=== PATIENT | male | born 1980 | race Caucasian/White ===

== ENCOUNTER 2016-03-31 07:57 | Emergency (ER) | payer SELFPAY ==
[~2016-03-31] VITALS: Ht 180.3 cm; Wt 85.0 kg
[2016-03-31 07:59] VITALS: BP 138/73; PULSE 83; RESP 15; TEMP 98.1; O2SAT 98
--- NOTE | 2016-03-31 08:40 | PD ---
HPI Chief Complaint: Skin Problem Time Seen by Provider: 08:40 Travel History International Travel<30 days: No Contact w/Intl Traveler<30days: No Traveled to known affect area: No History of Present Illness HPI 35-year-old male came to the emergency room complaining of left upper extremity pain, swelling and redness. Patient is an IV drug abuser and says that he noticed this last night and this morning it had gotten bigger in size. He has history of MRSA. Vital signs are stable here. Denies any fever or chills. [facility] Past Medical History Narrative Medical List of his past medical history as reviewed from the nursing note. Bipolar Disorder: Yes Depression: Yes Diabetes: No Diminished Hearing: No Psychiatric: Yes Integumentary: Yes Immunizations Current: Yes Past Surgical History Appendectomy: Yes Other Surgery: Yes ([facility] RIGHT FOREARM AND LEFT GROIN) Social History Alcohol Use: No Tobacco Use: Yes (1 PACK CIGS DAILY) Substance Use: Yes (substance abuse heroin, XANAX, FENTANYL ) Allergies-Medications (Allergen,Severity, Reaction): Coded Allergies: No Known Allergies (Unverified , 03/31/16) Comments No known drug allergies. Reported Meds & Prescriptions Reported Meds & Active Scripts Active No Active Prescriptions or Reported Medications Narrative Medication List of his home medications are reviewed from the nursing note. Review of Systems Except as stated in HPI: all other systems reviewed are Neg Physical Exam Narrative GENERAL: Awake, alert, anxious but no significant distress SKIN: Warm and dry. Right upper extremity on the biceps area there is a 5 x 5 cm erythematous warm indurated swelling with no fluctuance HEAD: Atraumatic. Normocephalic. EYES: Pupils equal and round. No scleral icterus. No injection or drainage. ENT: No nasal bleeding or discharge. Mucous membranes pink and moist. NECK: Trachea midline. No JVD. CARDIOVASCULAR: Regular rate and rhythm. No murmur appreciated. RESPIRATORY: No accessory muscle use. Clear to auscultation. Breath sounds equal bilaterally. GASTROINTESTINAL: Abdomen soft, non-tender, nondistended. Hepatic and splenic margins not palpable. MUSCULOSKELETAL: No obvious deformities. No clubbing. No cyanosis. No edema. NEUROLOGICAL: Awake and alert. No obvious cranial nerve deficits. Motor grossly within normal limits. Normal speech. PSYCHIATRIC: Appropriate mood and affect; insight and judgment normal. Data Data Last Documented VS Vital Signs Date Time Temp Pulse Resp B/P Pulse Ox O2 Delivery O2 Flow Rate FiO2 03/31/16 07:59 98.1 83 15 138/73 98 Orders Basic Metabolic Panel (Bmp) (03/31/16 08:43) Complete Blood Count With Diff (03/31/16 08:43) Blood Culture (03/31/16 08:43) Iv Access Insert/Monitor (03/31/16 08:43) Ketorolac Inj (Toradol Inj) (03/31/16 08:45) Clindamycin Inj (Cleocin Inj) (03/31/16 08:45) Tetanus-Diphther Tox Peds Inj (Tetanus-D (03/31/16 08:45) Sulfamet-Trimeth Ds 800-160 Mg (Bactrim (03/31/16 08:45) Ed Poc Ultrasound (03/31/16 ) Sodium Chlor 0.9% 1000 Ml Inj (Ns 1000 M (03/31/16 08:45) Clindamycin Inj (Cleocin Inj) (03/31/16 09:45) Labs Laboratory Tests Test 03/31/16 09:30 White Blood Count 15.1 TH/MM3 Red Blood Count 5.18 MIL/MM3 Hemoglobin 15.7 GM/DL Hematocrit 45.2 % Mean Corpuscular Volume 87.2 FL Mean Corpuscular Hemoglobin 30.2 PG Mean Corpuscular Hemoglobin 34.7 % Concent Red Cell Distribution Width 13.6 % Platelet Count 196 TH/MM3 Mean Platelet Volume 9.1 FL Neutrophils (%) (Auto) 79.3 % Lymphocytes (%) (Auto) 9.8 % Monocytes (%) (Auto) 10.2 % Eosinophils (%) (Auto) 0.5 % Basophils (%) (Auto) 0.2 % Neutrophils # (Auto) 12.0 TH/MM3 Lymphocytes # (Auto) 1.5 TH/MM3 Monocytes # (Auto) 1.5 TH/MM3 Eosinophils # (Auto) 0.1 TH/MM3 Basophils # (Auto) 0.0 TH/MM3 CBC Comment DIFF FINAL Differential Comment Sodium Level 135 MEQ/L Potassium Level 4.0 MEQ/L Chloride Level 100 MEQ/L Carbon Dioxide Level 27.9 MEQ/L Anion Gap 7 MEQ/L Blood Urea Nitrogen 7 MG/DL Creatinine 0.90 MG/DL Estimat Glomerular Filtration 95 ML/MIN Rate Random Glucose 94 MG/DL Calcium Level 8.9 MG/DL MDM Medical Decision Making Medical Screen Exam Complete: Yes Emergency Medical Condition: Yes Medical Record Reviewed: Yes Differential Diagnosis Abscess, cellulitis Narrative Course 10:47 AM I had ordered blood test and IV fluid and antibiotic. Being an IV drug abuser patient was a very hard stick. This was as per his own admission as well. The nurse had tried few times and was unable to get and access. However as soon as I started to prep him for the EJ after explaining it patient jumped out of the bed using herbal profanity and wanted to leave. He did not want an EJ. He wanted to speak with the cheese production supervisor. The charge nurse did come and speak with him. After which she had agreed to stay and one of the nurses he use the bedside ultrasound to get an access into his left antecubital vein. However as per his nurse while the fluid was running patient started complaining of pain and there was infiltration in the area. She had to stop the fluid and get the IV out. At this point patient just wanted to leave. He was in full capacity to make decisions for himself. Procedures EKG Prior to Arrival: No Diagnosis Primary Impression: Cellulitis Qualified Code: L03.113 - Cellulitis of right upper extremity Additional Impression: IV drug abuse Scripts No Active Prescriptions or Reported Meds Disposition: 07 AGAINST MEDICAL ADVICE Condition: Serious Kavitha Maynard MD Mar 31, 2016 08:40
[2016-03-31] MEDS ORDERED: TETANUS/DIPHTHERIA TOXOID PEDIATRIC 0.5 ML VIAL IM ONE (08:45)
[2016-03-31] MEDS ORDERED: SULFAMETHOXAZOLE-TRIMETHOPRIM DS 800-160 MG TAB PO ONE (08:45)
[2016-03-31] MEDS ORDERED: SODIUM CHLOR 0.9% 1000 ML INJ 1,000 ML IV ONE (08:45)
[2016-03-31] MEDS: KETOROLAC TROMETHAMINE 30 MG/ML (IVP) VIAL IVP ONE ×2 (08:45→09:49)
[2016-03-31] MEDS ORDERED: CLINDAMYCIN PHOS 600 MG/4 ML VIAL IM ONE (08:45)
[2016-03-31] MEDS: CLINDAMYCIN INJ 600 MG in SODIUM CHLORIDE 0.9% INJ 100 ML IV ONE ×2 (09:45→09:49)
[2016-03-31 10:14] LABS: BASOPHIL % 0.2 % (0.0-2.0); EOSINOPHIL # 0.1 TH/MM3 (0-0.4); EOSINOPHIL % 0.5 % (0.0-4.0); HEMATOCRIT 45.2 % (39.0-51.0); HEMO FLAGS DIFF FINAL; LYMPH % 9.8 % (9.0-44.0); LYMPHOCYTE # 1.5 TH/MM3 (1.0-4.8); MEAN CELL VOLUME 87.2 FL (80.0-100.0); MEAN CORPUSCULAR HEMOGLOBIN 30.2 PG (27.0-34.0); MEAN CORPUSCULAR HGB CONC 34.7 % (32.0-36.0); MONO % 10.2 % (0.0-8.0); NEUT % 79.3 % (16.0-70.0); PLATELET COUNT 196 TH/MM3 (150-450); RED BLOOD COUNT 5.18 MIL/MM3 (4.50-5.90); RED CELL DISTRIBUTION WIDTH 13.6 % (11.6-17.2); WHITE BLOOD COUNT 15.1 TH/MM3 (4.0-11.0)
[2016-03-31 10:57] LABS: BICARBONATE 27.9 MEQ/L (21.0-32.0)
== END 2016-03-31 10:30 | disposition left against medical advice (07) ==
LOC: NEPC 07:57
DX: L03.113 Cellulitis of right upper limb (principal); Z86.14 Personal history of Methicillin resistant Staphylococcus aureus infection; F17.210 Nicotine dependence, cigarettes, uncomplicated
CPT/HCPCS: 80048; 85025; 87040; 99283; J1885; J7030

== ENCOUNTER 2016-04-12 14:10 | Emergency (ER) | payer SELFPAY ==
[~2016-04-12] VITALS: Ht 177.8 cm; Wt 81.8 kg
[2016-04-12 14:12] VITALS: BP 134/82; PULSE 82; RESP 17; TEMP 98.2; O2SAT 99
--- NOTE | 2016-04-12 14:48 | PD ---
HPI Chief Complaint: Wound/Suture/Staple Re-Check Time Seen by Provider: 14:47 Travel History International Travel<30 days: No Contact w/Intl Traveler<30days: No Traveled to known affect area: No History of Present Illness HPI 35-year-old male with a history of IV drug abuse presents to the emergency department for evaluation of wound recheck. The patient was seen at our hospital 03/31/16 for heroin overdose and admitted for overdose and right upper arm abscess. While he was in the hospital he had incision and drainage of this abscess performed by surgeon Dr. Peters. He has been using wet-to-dry dressings since he was discharged 5 days ago and he has finished all antibiotics. He states the wound appears much better now, there is no redness, drainage, swelling, fever, chills. States that he thought he was told to come back to the hospital for follow-up, is unsure where he is supposed to go for follow-up of this wound. No other complaints. PFSH Past Medical History Bipolar Disorder: Yes Depression: Yes Diabetes: No Diminished Hearing: No Psychiatric: Yes Integumentary: Yes Immunizations Current: Yes Past Surgical History Appendectomy: Yes Other Surgery: Yes ([facility] RIGHT FOREARM AND LEFT GROIN) Social History Alcohol Use: No Tobacco Use: Yes (1 PACK CIGS DAILY) Substance Use: Yes (substance abuse heroin, XANAX, FENTANYL ) Allergies-Medications (Allergen,Severity, Reaction): Coded Allergies: No Known Allergies (Unverified , 04/12/16) Reported Meds & Prescriptions Reported Meds & Active Scripts Active No Active Prescriptions or Reported Medications Review of Systems Except as stated in HPI: all other systems reviewed are Neg Physical Exam Narrative GENERAL: Well-nourished and well-developed pleasant male patient in no acute distress who is nontoxic appearing. SKIN: Warm and dry. Medial right upper arm with surgical incision approximately 7 cm in length and 2 cm in diameter. Appears to be healing well with pink granulation tissue. No surrounding erythema, warmth, swelling, discharge or drainage. HEAD: Normocephalic and atraumatic. EYES: No injection, drainage, or hyphema noted. PERRLA. EOMI. ENT: No nasal drainage noted. Oropharynx is clear. NECK: Supple and the trachea is midline. CARDIOVASCULAR: Regular rate and rhythm. RESPIRATORY: Breath sounds are equal bilaterally with no accessory muscle use, wheezing, rhonchi, or crackles. MUSCULOSKELETAL: No obvious deformities, swelling, cyanosis, or ecchymosis is present throughout the upper and lower extremities. Patient has full range of motion without any signs of neurovascular compromise. NEUROLOGICAL: Awake, alert, and oriented. Normal speech and gait. Cranial nerves are grossly intact. Data Data Last Documented VS Vital Signs Date Time Temp Pulse Resp B/P Pulse Ox O2 Delivery O2 Flow Rate FiO2 04/12/16 14:12 98.2 82 17 134/82 99 MDM Medical Decision Making Medical Screen Exam Complete: Yes Emergency Medical Condition: Yes Differential Diagnosis Wound care versus wound recheck versus abscess follow-up Narrative Course 35-year-old male presents to the emergency department for evaluation of right upper arm wound. Patient is afebrile, vital signs are stable. Patient is status post surgical incision and drainage of right upper extremity abscess. He was unsure who he was supposed to follow up with so he came back to the emergency department. The wound appears to be healing very well. There is no signs of active infection. I have given him the information of his surgeon and advised him to call their office to schedule an outpatient appointment. Patient verbalizes understanding and agreement with treatment plan. Diagnosis Primary Impression: Wound of right upper extremity Qualified Code: S41.101A - Wound of right upper extremity, initial encounter Referrals: Kaley Peters MD Additional Instructions: Continue wound care as discussed. Follow-up with Dr. Peters in office. Return to the ED for any acute worsening of symptoms. Med/Other Pt SpecificInfo: No Change to Meds Scripts No Active Prescriptions or Reported Meds Disposition: 01 DISCHARGE HOME Condition: Stable Hue Kennedy Apr 12, 2016 14:48
== END 2016-04-12 15:00 | disposition home or self-care (01) ==
LOC: NEPB 14:10
DX: L02.413 Cutaneous abscess of right upper limb (principal)
CPT/HCPCS: 99282

== ENCOUNTER 2017-05-13 12:02 | Emergency (ER) | payer SELFPAY ==
[~2017-05-13] VITALS: Ht 208.3 cm; Wt 90.0 kg
[~2017-05-13 12:02] MED LIST: BACT800T5 PO; CIPR-9 PO; IBUP1TAB7 PO
[2017-05-13 12:10] VITALS: BP 140/66; PULSE 66; RESP 17; TEMP 97.9; O2SAT 95
[2017-05-13] MEDS ORDERED: METH40TA PO (12:28)
[2017-05-13] MEDS ORDERED: SODIUM CHLORIDE 0.9% FLUSH 10 ML FLUSH IVF PRN (12:30)
--- NOTE | 2017-05-13 12:31 | PD ---
HPI Chief Complaint: Alcohol/Drug Intoxication Time Seen by Provider: 12:16 Travel History International Travel<30 days: No Contact w/Intl Traveler<30days: No Traveled to known affect area: No History of Present Illness HPI Patient is a 36-year-old male presented to the emergency room for evaluation of possible overdose. is at bedside and is giving history. Patient has a history of heroin abuse, he is currently on methadone daily. She states that they missed the appointment this morning at the methadone clinic because he overslept. She reports that she picked him up this morning and in the car he turned blue and was foaming at the mouth. She reports that he likely use heroin because he missed the methadone appointment. Symptom onset was sudden, severity is moderate to severe. Symptoms are exacerbated by drug use. Patient initially reported that he wanted to see if his methadone needed to be adjusted because when he sweats or exerts himself he feels that the medication is not working well. Patient reported to [facility] that he also took Xanax this morning. He has no other history. PFSH Past Medical History Bipolar Disorder: Yes Anxiety: Yes Depression: Yes Genitourinary: No Immunizations Current: Yes Past Surgical History Appendectomy: Yes Other Surgery: Yes ([facility] RIGHT FOREARM AND LEFT GROIN) Social History Alcohol Use: Yes (OCCASIONAL) Tobacco Use: Yes (1/2 PPD) Substance Use: Yes (IV drug abuse ) Allergies-Medications (Allergen,Severity, Reaction): Coded Allergies: No Known Allergies (Unverified Adverse Reaction, Unknown, 05/13/17) Reported Meds & Prescriptions Reported Meds & Active Scripts Active Reported Methadone (Methadone HCl) 40 Mg Tab 90 Mg PO DAILY Review of Systems Except as stated in HPI: all other systems reviewed are Neg Neurologic: Positive: Change in Mentation Psychiatric: Positive: Substance Abuse Physical Exam Narrative GENERAL: Well-developed, well-nourished, drowsy male. SKIN: Warm and dry. HEAD: Atraumatic. Normocephalic. EYES: Pupils equal and round. No scleral icterus. No injection or drainage. ENT: No nasal bleeding or discharge. Mucous membranes pink and moist. NECK: Trachea midline. No JVD. CARDIOVASCULAR: Regular rate and rhythm. RESPIRATORY: No accessory muscle use. Clear to auscultation. Breath sounds equal bilaterally. GASTROINTESTINAL: Abdomen soft, non-tender, nondistended. Hepatic and splenic margins not palpable. MUSCULOSKELETAL: Extremities without clubbing, cyanosis, or edema. No obvious deformities. NEUROLOGICAL: Drowsy but arousable. No obvious cranial nerve deficits. Motor grossly within normal limits. Five out of 5 muscle strength in the arms and legs. Normal speech. PSYCHIATRIC: Appropriate mood and affect; insight and judgment normal. Data Data Last Documented VS Vital Signs Date Time Temp Pulse Resp B/P (MAP) Pulse Ox O2 Delivery O2 Flow Rate FiO2 05/13/17 12:10 97.9 66 17 140/66 (90) 95 Orders Orders Iv Access Insert/Monitor (05/13/17 12:28) Ecg Monitoring (05/13/17 12:28) Oximetry (05/13/17 12:28) Sodium Chloride 0.9% Flush (Ns Flush) (05/13/17 12:30) Naloxone Inj (Narcan Inj) (05/13/17 12:45) [facility] Medical Decision Making Medical Screen Exam Complete: Yes Emergency Medical Condition: Yes Interpretation(s) Vital Signs Date Time Temp Pulse Resp B/P (MAP) Pulse Ox O2 Delivery O2 Flow Rate FiO2 05/13/17 12:10 97.9 66 17 140/66 (90) 95 Differential Diagnosis Substance abuse vs heroine OD vs metabolic abnormality vs other Narrative Course Patient is a 36-year-old male that presented to the emergency department for evaluation of possible overdose on heroin. Patient was drowsy but arousable on arrival, his gave most of the report. Patient's vital signs are stable, he was well oxygenated on room air. Narcan was ordered but not given. Patient was reassessed, he is alert, much more so than on arrival. He is well- appearing. He is requesting to be discharged. He has no suicidal homicidal ideations. Patient uses heroin due to missing his appointment at the methadone clinic. Patient was given discharge information. Diagnosis Primary Impression: Heroin overdose Qualified Codes: T40.1X1A - Poisoning by heroin, accidental (unintentional), initial encounter Referrals: [facility] Patient Instructions: General Instructions, Opioid Overdose (ED) Additional Instructions: Follow-up with Jeronimo Rodriguez Follow-up at the methadone clinic Avoid illicit drug use Return to emergency department for any new worsening symptoms Med/Other Pt SpecificInfo: No Change to Meds Disposition: 01 DISCHARGE HOME Condition: Stable Smith,Glenny VESSEL LINER May 13, 2017 12:31
[2017-05-13] MEDS ORDERED: NALOXONE HCL 0.4 MG/ML AMP IV PUSH PRN (12:45)
[2017-05-13 13:40] VITALS: BP 138/62
== END 2017-05-13 13:49 | disposition home or self-care (01) ==
LOC: NEPE 12:02
DX: T40.1X1A Poisoning by heroin, accidental (unintentional), initial encounter (principal)
CPT/HCPCS: 99281

== ENCOUNTER 2017-06-23 01:17 | Inpatient (IN) | payer SELFPAY ==
[~2017-06-23] VITALS: Ht 182.9 cm; Wt 85.8 kg
[~2017-06-23 01:17] MED LIST changes: -BACT800T5 PO; -CIPR-9 PO; -IBUP1TAB7 PO; +METH40TA PO
[2017-06-23 01:26] VITALS: BP 138/74; PULSE 97; RESP 18; TEMP 100.4; O2SAT 100
[2017-06-23] MEDS ORDERED: SODIUM CHLOR 0.9% 1000 ML INJ 700 ML IV ONE (02:49)
[2017-06-23] MEDS ORDERED: SODIUM CHLOR 0.9% 1000 ML INJ 1,000 ML IV ONE ×2 (02:49)
[2017-06-23 03:11] LABS: AUTOMATED NEUTROPHIL # 14.2 TH/MM3 (1.8-7.7); BASOPHIL # 0.6 TH/MM3 (0-0.2); BASOPHIL % 3.1 % (0.0-2.0); EOSINOPHIL # 0.1 TH/MM3 (0-0.4); EOSINOPHIL % 0.6 % (0.0-4.0); HEMATOCRIT 34.1 % (39.0-51.0); HEMOGLOBIN 11.8 GM/DL (13.0-17.0); LYMPH % 8.3 % (9.0-44.0); LYMPHOCYTE # 1.5 TH/MM3 (1.0-4.8); MEAN CELL VOLUME 87.8 FL (80.0-100.0); MEAN CORPUSCULAR HEMOGLOBIN 30.3 PG (27.0-34.0); MEAN CORPUSCULAR HGB CONC 34.5 % (32.0-36.0); MEAN PLATELET VOLUME 8.2 FL (7.0-11.0); MONO % 7.8 % (0.0-8.0); MONOCYTE # 1.4 TH/MM3 (0-0.9); NEUT % 80.2 % (16.0-70.0); PLATELET COUNT 232 TH/MM3 (150-450); RED BLOOD COUNT 3.89 MIL/MM3 (4.50-5.90); RED CELL DISTRIBUTION WIDTH 11.6 % (11.6-17.2); WHITE BLOOD COUNT 17.9 TH/MM3 (4.0-11.0)
[2017-06-23 03:19] LABS: CHLORIDE 101 MEQ/L (98-107); SODIUM (NA) 134 MEQ/L (136-145)
[2017-06-23 03:22] LABS: CALCIUM 8.1 MG/DL (8.5-10.1)
[2017-06-23 03:23] LABS: ALBUMIN 2.9 GM/DL (3.4-5.0); BICARBONATE 26.5 MEQ/L (21.0-32.0); BLOOD UREA NITROGEN 13 MG/DL (7-18); GLUCOSE,RANDOM 100 MG/DL (74-106)
--- NOTE | 2017-06-23 03:25 | PD ---
HPI Chief Complaint: Fever Time Seen by Provider: 02:28 Travel History International Travel<30 days: No Contact w/Intl Traveler<30days: No Traveled to known affect area: No History of Present Illness HPI The patient is a 37-year-old male who abuses alcohol, cocaine and heroin and is now abusing heroin on a regular basis. He said he shot up heroin about 6 hours ago but told the nurse earlier that he shot up heroin 1 hour ago. He complains of fever and swelling in the right wrist which he ascribes to "cotton fever". He states he will refuse any admission tonight. In addition to actively abusing heroin, he takes methadone from the methadone clinic. He states that he will refuse admission and unless he can get methadone, he takes 95 mg of methadone daily. PFSH Past Medical History Bipolar Disorder: Yes Anxiety: Yes Depression: Yes Diabetes: No Diminished Hearing: No Genitourinary: No Psychiatric: Yes Integumentary: Yes Immunizations Current: Yes Tetanus Vaccination: < 5 Years Past Surgical History Appendectomy: Yes Other Surgery: Yes ([facility] RIGHT FOREARM AND LEFT GROIN) Social History Alcohol Use: No Tobacco Use: Yes (03/13 PPD) Substance Use: Yes (IV drug abuse, marijuana, heroin) Allergies-Medications (Allergen,Severity, Reaction): Coded Allergies: No Known Allergies (Unverified Allergy, Unknown, 06/23/17) Reported Meds & Prescriptions Reported Meds & Active Scripts Active Reported Methadose (Methadone HCl) 40 Mg Tab 95 Mg PO DAILY Review of Systems Except as stated in HPI: all other systems reviewed are Neg Physical Exam Narrative GENERAL: The patient is slightly sleepy but will answer questions and wakes up promptly. He does appear slightly high. SKIN: Focused skin assessment warm/dry. Recent needle tracks are present on both wrists and forearms, there is cellulitis present around both wrist but no abscesses are noted. HEAD: Atraumatic. Normocephalic. EYES: Pupils equal and round and 1 mm in diameter. No scleral icterus. No injection or drainage. ENT: No nasal bleeding or discharge. Mucous membranes pink and moist. NECK: Trachea midline. No JVD. CARDIOVASCULAR: Regular rate and rhythm. No murmur appreciated. RESPIRATORY: No accessory muscle use. Clear to auscultation. Breath sounds equal bilaterally. GASTROINTESTINAL: Abdomen soft, non-tender, nondistended. Hepatic and splenic margins not palpable. MUSCULOSKELETAL: No obvious deformities. No clubbing. No cyanosis. No edema. NEUROLOGICAL: Awake and alert. No obvious cranial nerve deficits. Motor grossly within normal limits. Normal speech. PSYCHIATRIC: Appropriate mood and affect; insight and judgment normal. Data Data Last Documented VS Vital Signs Date Time Temp Pulse Resp B/P (MAP) Pulse Ox O2 Delivery O2 Flow Rate FiO2 06/23/17 03:45 100.2 65 28 138/68 (91) 98 Room Air Orders Orders Sepsis Workup Initiated (06/23/17 ) Complete Blood Count With Diff (06/23/17 02:49) Comprehensive Metabolic Panel (06/23/17 02:49) Lactic Acid Sepsis Protocol (06/23/17 02:49) Troponin I (06/23/17 02:49) Urinalysis - C+S If Indicated (06/23/17 02:49) Blood Culture (06/23/17 02:49) Chest, Pa & Lat (06/23/17 02:49) Ecg Monitoring (06/23/17 02:49) Iv Access Insert/Monitor (06/23/17 02:49) Oximetry (06/23/17 02:49) Oxygen Administration (06/23/17 02:49) Sodium Chlor 0.9% 1000 Ml Inj (Ns 1000 M (06/23/17 02:49) Sodium Chlor 0.9% 1000 Ml Inj (Ns 1000 M (06/23/17 02:49) Sodium Chlor 0.9% 1000 Ml Inj (Ns 1000 M (06/23/17 02:49) Sodium Chloride 0.9% Flush (Ns Flush) (06/23/17 04:00) Ceftriaxone Inj (Rocephin Inj) (06/23/17 04:00) Azithromycin Inj (Zithromax Inj) (06/23/17 04:00) B-Type Natriuretic Peptide (06/23/17 03:58) Vancomycin Consult Pharmacy (Vancomycin (06/23/17 05:00) Cefepime Inj (Maxipime Inj) (06/23/17 19:00) Lorazepam Inj (Ativan Inj) (06/23/17 05:00) Admit To Inpatient (06/23/17 ) Vital Signs (Adult) Q4H (06/23/17 04:47) Activity Oob Ad Lexi (06/23/17 04:47) Heavy Mobile Equipment Operator / Telemetry .CONTINUOUS (06/23/17 04:47) Intake + Output CLARA.QSHIFT (06/23/17 04:47) Diet Regular Basic (06/23/17 Breakfast) Sodium Chlor 0.9% 1000 Ml Inj (Ns 1000 M (06/23/17 04:47) Sodium Chloride 0.9% Flush (Ns Flush) (06/23/17 05:00) Sodium Chloride 0.9% Flush (Ns Flush) (06/23/17 09:00) Ondansetron Inj (Zofran Inj) (06/23/17 05:00) Comprehensive Metabolic Panel (06/24/17 06:00) Complete Blood Count With Diff (06/24/17 06:00) Scd Bilateral/Knee High CLARA.BID (06/23/17 04:47) Remy Bilateral/Knee High CLARA.QSHIFT (06/23/17 04:50) Acetaminophen (Tylenol) (06/23/17 05:00) Oxycodone (Roxicodone) (06/23/17 05:00) Oxycodone (Roxicodone) (06/23/17 05:00) Docusate Sodium-Senna (Marly-Colace) (06/23/17 09:00) Magnesium Hydroxide Liq (Milk Of Magnesi (06/23/17 05:00) Sennosides (Senokot) (06/23/17 05:00) Bisacodyl Supp (Dulcolax Supp) (06/23/17 05:00) Lactulose Liq (Lactulose Liq) (06/23/17 05:00) Inpatient Certification (06/23/17 ) Labs Laboratory Tests Test 06/23/17 03:00 White Blood Count 17.9 TH/MM3 Red Blood Count 3.89 MIL/MM3 Hemoglobin 11.8 GM/DL Hematocrit 34.1 % Mean Corpuscular Volume 87.8 FL Mean Corpuscular Hemoglobin 30.3 PG Mean Corpuscular Hemoglobin Concent 34.5 % Red Cell Distribution Width 11.6 % Platelet Count 232 TH/MM3 Mean Platelet Volume 8.2 FL Neutrophils (%) (Auto) 80.2 % Lymphocytes (%) (Auto) 8.3 % Monocytes (%) (Auto) 7.8 % Eosinophils (%) (Auto) 0.6 % Basophils (%) (Auto) 3.1 % Neutrophils # (Auto) 14.2 TH/MM3 Lymphocytes # (Auto) 1.5 TH/MM3 Monocytes # (Auto) 1.4 TH/MM3 Eosinophils # (Auto) 0.1 TH/MM3 Basophils # (Auto) 0.6 TH/MM3 CBC Comment DIFF FINAL Differential Comment Blood Urea Nitrogen 13 MG/DL Creatinine 0.88 MG/DL Random Glucose 100 MG/DL Total Protein 7.1 GM/DL Albumin 2.9 GM/DL Calcium Level 8.1 MG/DL Alkaline Phosphatase 60 U/L Aspartate Amino Transf (AST/SGOT) 15 U/L Alanine Aminotransferase (ALT/SGPT) 16 U/L Total Bilirubin 0.3 MG/DL Sodium Level 134 MEQ/L Potassium Level 3.8 MEQ/L Chloride Level 101 MEQ/L Carbon Dioxide Level 26.5 MEQ/L Anion Gap 7 MEQ/L Estimat Glomerular Filtration Rate 97 ML/MIN Lactic Acid Level 0.5 mmol/L Troponin I LESS THAN 0.02 NG/ML B-Type Natriuretic Peptide 38 PG/ML MDM Medical Decision Making Medical Screen Exam Complete: Yes Emergency Medical Condition: Yes Medical Record Reviewed: Yes Interpretation(s) The CBC shows a white count of 17,900 with a hemoglobin of 11.9 and hematocrit of 34.1 with 80% neutrophils. The complete metabolic profile shows a sodium 134 , calcium 8.1 and albumin 2.9 but is otherwise normal. The troponin I is normal. Lactic acid is 0.5 which is normal. The BNP is normal. Differential Diagnosis Heroin related pulmonary edema, pneumonia, cellulitis, sepsis, electrolyte disorder, dehydration Narrative Course The patient likely has heroin related pulmonary edema. He also has cellulitis from his multiple needle sticks in the wrist. He is also mildly dehydrated. The patient initially agreed to be admitted but then changed his mind. The patient only agreed to be admitted to [facility] if he could get his methadone, 95 mg daily. I could not assure him this but I called Dr. Curtis and she would get it if she could confirm that he was getting this at the methadone clinic. I informed the patient about this but he left. The patient apparently threw his urinal on the floor, he said this was accidental. The patient also refused to sign out AMA. Diagnosis Primary Impression: Cellulitis Additional Impressions: Heroin overdose Atypical pneumonia Pulmonary edema Additional Instructions: Stay off of heroin, I hope you do go to [facility] and I gave you the blood work that we did here to speed up the workup. We will be glad to admit you here if you return. Disposition: 07 AGAINST MEDICAL ADVICE Condition: Stable Amandeep Hagan MD Jun 23, 2017 03:25
[2017-06-23 03:26] LABS: ALT (GPT) 16 U/L (12-78); AST (GOT) 15 U/L (15-37); CREATININE 0.88 MG/DL (0.60-1.30); GLOMERULAR FILTRATION RATE 97 ML/MIN (>89)
[2017-06-23 03:27] LABS: TOTAL BILIRUBIN ADULT 0.3 MG/DL (0.2-1.0); TOTAL PROTEIN 7.1 GM/DL (6.4-8.2)
--- NOTE | 2017-06-23 03:28 | RADRPT ---
EXAM DATE/TIME: 06/23/2017 03:00 [place] COMPARISON: CHEST PA & LAT, January 19, 2015, 19:43. INDICATIONS : Fever. MEDICAL HISTORY : None. SURGICAL HISTORY : Appendectomy. ENCOUNTER: Initial ACUITY: 4 - 6 days PAIN SCORE: 7/10 LOCATION: Bilateral chest FINDINGS: The cardiac silhouette is normal in transverse diameter. There is interstitial disease bilaterally wh ich may reflect edema or pneumonia. No pleural effusions are identified. CONCLUSION: Interstitial disease which may reflect atypical pneumonia or edema Mark Sandra MD on June 23, 2017 at 3:25 Board Certified Radiologist. This report was verified electronically.
[2017-06-23 03:29] LABS: ALKALINE PHOSPHATASE 60 U/L (45-117)
[2017-06-23 03:31] LABS: TROPONIN I LESS THAN 0.02 NG/ML (0.02-0.05)
[2017-06-23 03:44] VITALS: O2SAT 98
[2017-06-23 03:45] VITALS: BP 138/68; PULSE 65; PULSE 95; RESP 28; TEMP 100.2; O2SAT 98
[2017-06-23] MEDS ORDERED: cefTRIAXone INJ 1,000 MG in SODIUM CHLORIDE 0.9% INJ 100 ML IV ONE (04:00)
[2017-06-23] MEDS ORDERED: AZITHROMYCIN INJ 500 MG in SODIUM CHLOR 0.9% 250 ML INJ 250 ML IV ONE (04:00)
[2017-06-23] MEDS ORDERED: SODIUM CHLORIDE 0.9% FLUSH 10 ML FLUSH IVF PRN (04:00)
[2017-06-23] MEDS ORDERED: METH40TA2 PO (04:37)
[2017-06-23] MEDS ORDERED: SODIUM CHLOR 0.9% 1000 ML INJ 1,000 ML IV SCH (04:47)
[2017-06-23] MEDS ORDERED: LORazepam 2 MG/ML VIAL IV PUSH PRN (05:00)
[2017-06-23] MEDS ORDERED: SODIUM CHLORIDE 0.9% FLUSH 10 ML FLUSH IV FLUSH PRN (05:00)
[2017-06-23] MEDS ORDERED: SENNOSIDES 8.6 MG TAB PO PRN (05:00)
[2017-06-23] MEDS ORDERED: MAGNESIUM HYDROXIDE SUSP 30 ML CUP PO PRN (05:00)
[2017-06-23] MEDS ORDERED: Vancomycin Consult Pharmacy 1 EA OTHER SCH (05:00)
[2017-06-23] MEDS ORDERED: ACETAMINOPHEN 325 MG TAB PO PRN (05:00)
[2017-06-23] MEDS ORDERED: BISACODYL 10 MG SUPP RECTAL PRN (05:00)
[2017-06-23] MEDS ORDERED: LACTULOSE SYRUP 20 GM/30 ML CUP PO PRN (05:00)
[2017-06-23] MEDS ORDERED: ONDANSETRON HCL 4 MG/2 ML VIAL IVP PRN (05:00)
[2017-06-23] MEDS ORDERED: VANCOMYCIN INJ 2,000 MG in SODIUM CHLORID 0.9% 500 ML INJ 500 ML IV SCH (06:00)
[2017-06-23] MEDS ORDERED: SODIUM CHLORIDE 0.9% FLUSH 10 ML FLUSH IV FLUSH SCH (09:00)
[2017-06-23] MEDS ORDERED: DOCUSATE SODIUM 50 MG/SENNA 8.6 MG TAB PO SCH (09:00)
[2017-06-23] MEDS ORDERED: CEFEPIME INJ 1,000 MG in SODIUM CHLORIDE 0.9% INJ 100 ML IV SCH (19:00)
[2017-06-24] MEDS ORDERED: CLIN150 PO (15:23)
[2017-06-25] MEDS ORDERED: PHARMACY ORDERED LAB ONE (05:45)
== END 2017-06-23 05:05 | disposition left against medical advice (07) | DRG 602 ==
LOC: PHED 01:17 → PHEDA 04:56
PROVIDERS: ADMIT Hospitalist; ATTEND Hospitalist
DX: L03.114 Cellulitis of left upper limb (principal); J18.9 Pneumonia, unspecified organism; J81.1 Chronic pulmonary edema; L03.113 Cellulitis of right upper limb; E86.0 Dehydration; F17.210 Nicotine dependence, cigarettes, uncomplicated; F12.10 Cannabis abuse, uncomplicated; F11.10 Opioid abuse, uncomplicated
CPT/HCPCS: 71046; 80053; 83605; 83880; 84484; 85025; 87040; 96365; 96375; J0456; J0696; J7030; J7050

== ENCOUNTER 2017-06-24 11:02 | Emergency (ER) | payer SELFPAY ==
[~2017-06-24] VITALS: Ht 172.7 cm; Wt 75.0 kg
[~2017-06-24 11:02] MED LIST changes: -METH40TA PO; +METH40TA2 PO
[2017-06-24 11:17] VITALS: BP 121/65; PULSE 65; RESP 18; TEMP 98.1; O2SAT 96
--- NOTE | 2017-06-24 12:27 | PD ---
HPI Chief Complaint: Skin Problem Time Seen by Provider: 11:45 Travel History International Travel<30 days: No Contact w/Intl Traveler<30days: No Traveled to known affect area: No History of Present Illness HPI The patient is a 37-year-old male who presents to the emergency department for an abscess to the volar aspect of the right wrist. The patient has a history of IV drug use, states he has had an abscess to the volar aspect of the right wrist for several days. He states he was seen at 2 different hospitals who wanted to perform surgery, however, he did not want surgery, he only wanted an incision and drainage, and subsequently left the hospital. He has had previous abscesses drained on the right upper extremity arm, the left wrist, and last use IV drugs several days ago. He also states he is currently on methadone. He denies any fever, chills, or sweats. Symptoms are moderate. He is right-hand dominant. PFSH Past Medical History Bipolar Disorder: Yes Anxiety: Yes Depression: Yes Diabetes: No Diminished Hearing: No Genitourinary: No Psychiatric: Yes Integumentary: Yes Immunizations Current: Yes Tetanus Vaccination: < 5 Years Influenza Vaccination: No ?: Not Past Surgical History Appendectomy: Yes Other Surgery: Yes ([facility] RIGHT FOREARM AND LEFT GROIN) Social History Alcohol Use: No Tobacco Use: Yes (1/2 PPD) Substance Use: Yes (IV drug abuse, marijuana, heroin) Allergies-Medications (Allergen,Severity, Reaction): Coded Allergies: No Known Allergies (Unverified Allergy, Unknown, 06/24/17) Reported Meds & Prescriptions Reported Meds & Active Scripts Active Reported Methadose (Methadone HCl) 40 Mg Tab 95 Mg PO DAILY Review of Systems Except as stated in HPI: all other systems reviewed are Neg General / Constitutional: No: Fever Cardiovascular: No: Chest Pain or Discomfort Respiratory: No: Shortness of Breath Gastrointestinal: No: Nausea, Vomiting, Abdominal Pain Skin: Positive Other (As noted in the history of present illness) Neurologic: No: Paresthesia, Sensory Disturbance Psychiatric: Positive: Substance Abuse Physical Exam Narrative GENERAL: Awake, alert, nontoxic-appearing 37-year-old male who is sleeping initially when I enter the room. SKIN: Focused skin assessment warm/dry. HEAD: Atraumatic. Normocephalic. EYES: Pupils equal and round. 3 mm bilateral and reactive. ENT: No nasal bleeding or discharge. Mucous membranes pink and moist. NECK: Trachea midline. No JVD. CARDIOVASCULAR: Regular rate and rhythm. No murmur appreciated. Heart rate in the 60s per RESPIRATORY: No accessory muscle use. Clear to auscultation. Breath sounds equal bilaterally. GASTROINTESTINAL: Abdomen soft, non-tender, nondistended. Hepatic and splenic margins not palpable. MUSCULOSKELETAL: Abscess to the volar aspect of the right wrist with palpable fluctuance. Mild surrounding swelling, minimal erythema. NEUROLOGICAL: Awake and alert. No obvious cranial nerve deficits. Motor grossly within normal limits. Normal speech. PSYCHIATRIC: Appropriate mood and affect; insight and judgment normal. Data Data Last Documented VS Vital Signs Date Time Temp Pulse Resp B/P (MAP) Pulse Ox O2 Delivery O2 Flow Rate FiO2 06/24/17 15:05 65 15 116/61 (79) 97 Room Air 06/24/17 11:17 98.1 Orders Orders Basic Metabolic Panel (Bmp) (06/24/17 12:22) Complete Blood Count With Diff (06/24/17 12:22) Wound Culture And Gram Stain (06/24/17 12:22) Iv Access Insert/Monitor (06/24/17 12:22) Ketorolac Inj (Toradol Inj) (06/24/17 12:30) Clindamycin Inj (Cleocin Inj) (06/24/17 12:30) Sodium Chlor 0.9% 1000 Ml Inj (Ns 1000 M (06/24/17 12:30) Lidocaine Pf 1% Inj (Xylocaine-Mpf 1% In (06/24/17 12:30) Wound Culture And Gram Stain (06/24/17 12:24) Vascular Access Team Consult/P PRN (06/24/17 13:46) Vascular Poc Ultrasound (06/24/17 ) Labs Laboratory Tests Test 06/24/17 12:50 06/24/17 14:53 Blood Urea Nitrogen 5 MG/DL Creatinine 0.80 MG/DL Random Glucose 83 MG/DL Calcium Level 8.3 MG/DL Sodium Level 139 MEQ/L Potassium Level 4.5 MEQ/L Chloride Level 106 MEQ/L Carbon Dioxide Level 27.0 MEQ/L Anion Gap 6 MEQ/L Estimat Glomerular Filtration Rate 108 ML/MIN White Blood Count 12.9 TH/MM3 Red Blood Count 3.68 MIL/MM3 Hemoglobin 11.3 GM/DL Hematocrit 32.2 % Mean Corpuscular Volume 87.5 FL Mean Corpuscular Hemoglobin 30.6 PG Mean Corpuscular Hemoglobin Concent 35.0 % Red Cell Distribution Width 12.3 % Platelet Count 177 TH/MM3 Mean Platelet Volume 8.7 FL Neutrophils (%) (Auto) 76.2 % Lymphocytes (%) (Auto) 13.2 % Monocytes (%) (Auto) 9.2 % Eosinophils (%) (Auto) 1.1 % Basophils (%) (Auto) 0.3 % Neutrophils # (Auto) 9.8 TH/MM3 Lymphocytes # (Auto) 1.7 TH/MM3 Monocytes # (Auto) 1.2 TH/MM3 Eosinophils # (Auto) 0.1 TH/MM3 Basophils # (Auto) 0.0 TH/MM3 CBC Comment DIFF FINAL Differential Comment [facility] Medical Decision Making Medical Screen Exam Complete: Yes Emergency Medical Condition: Yes Medical Record Reviewed: Yes Interpretation(s) Laboratory Tests Test 06/24/17 12:50 06/24/17 14:53 Blood Urea Nitrogen 5 MG/DL Creatinine 0.80 MG/DL Random Glucose 83 MG/DL Calcium Level 8.3 MG/DL Sodium Level 139 MEQ/L Potassium Level 4.5 MEQ/L Chloride Level 106 MEQ/L Carbon Dioxide Level 27.0 MEQ/L Anion Gap 6 MEQ/L Estimat Glomerular Filtration Rate 108 ML/MIN White Blood Count 12.9 TH/MM3 Red Blood Count 3.68 MIL/MM3 Hemoglobin 11.3 GM/DL Hematocrit 32.2 % Mean Corpuscular Volume 87.5 FL Mean Corpuscular Hemoglobin 30.6 PG Mean Corpuscular Hemoglobin Concent 35.0 % Red Cell Distribution Width 12.3 % Platelet Count 177 TH/MM3 Mean Platelet Volume 8.7 FL Neutrophils (%) (Auto) 76.2 % Lymphocytes (%) (Auto) 13.2 % Monocytes (%) (Auto) 9.2 % Eosinophils (%) (Auto) 1.1 % Basophils (%) (Auto) 0.3 % Neutrophils # (Auto) 9.8 TH/MM3 Lymphocytes # (Auto) 1.7 TH/MM3 Monocytes # (Auto) 1.2 TH/MM3 Eosinophils # (Auto) 0.1 TH/MM3 Basophils # (Auto) 0.0 TH/MM3 CBC Comment DIFF FINAL Differential Comment Differential Diagnosis Differential diagnosis includes abscess, cellulitis, IV drug abuse, infected wound, sepsis. Narrative Course IV was established, labs are drawn and sent, the patient was placed on cardiac telemetry monitoring and continuous pulse oximetry monitoring. I reviewed the EMR, patient a blood culture drawn yesterday that is negative at 24 hours. Patient states he does not want surgery, requests incision and drainage. Therefore, the abscess was drained by the nurse practitioner. Please refer to the procedure note. The patient was administered clindamycin 600 mg intravenously. Wound culture was sent to lab. The patient's white count has improved from greater than 17 down to 12.9. The patient will be discharged on clindamycin orally, is advised to stop using drugs. Diagnosis Primary Impression: Abscess Additional Impression: IV drug abuse Patient Instructions: General Instructions Additional Instructions: Medications as directed. Warm compresses to the affected area. Reevaluation 48 hours if symptoms worsen or progress. Follow-up with a primary physician. Med/Other Pt SpecificInfo: Prescription(s) given Scripts Clindamycin (Cleocin) 150 Mg Cap 150 MG PO Q6H for Infection for 10 Days, #40 CAP 0 Refills Prov: Maury Marie MD 06/24/17 Disposition: 01 DISCHARGE HOME Condition: Stable Maury Marie MD Jun 24, 2017 12:27
[2017-06-24] MEDS ORDERED: LIDOCAINE HCL 1% PF 30 ML VIAL INFIL ONE (12:30)
[2017-06-24] MEDS ORDERED: SODIUM CHLOR 0.9% 1000 ML INJ 1,000 ML IV ONE (12:30)
[2017-06-24] MEDS ORDERED: CLINDAMYCIN INJ 600 MG in SODIUM CHLORIDE 0.9% INJ 100 ML IV ONE (12:30)
[2017-06-24] MEDS ORDERED: KETOROLAC TROMETHAMINE 30 MG/ML (IVP) VIAL IVP ONE (12:30)
--- NOTE | 2017-06-24 12:48 | PD ---
Physical Exam Date Seen by Provider: Jun 24, 2017 Time Seen by Provider: 12:47 Narrative For full history and physical examination please see previous note. Data Data Last Documented VS Vital Signs Date Time Temp Pulse Resp B/P (MAP) Pulse Ox O2 Delivery O2 Flow Rate FiO2 06/24/17 11:17 98.1 65 18 121/65 (83) 96 Orders Orders Basic Metabolic Panel (Bmp) (06/24/17 12:22) Complete Blood Count With Diff (06/24/17 12:22) Wound Culture And Gram Stain (06/24/17 12:22) Iv Access Insert/Monitor (06/24/17 12:22) Ketorolac Inj (Toradol Inj) (06/24/17 12:30) Clindamycin Inj (Cleocin Inj) (06/24/17 12:30) Sodium Chlor 0.9% 1000 Ml Inj (Ns 1000 M (06/24/17 12:30) Lidocaine Pf 1% Inj (Xylocaine-Mpf 1% In (06/24/17 12:30) Wound Culture And Gram Stain (06/24/17 12:24) MDM Medical Record Reviewed: Yes Supervised Visit with JUSTIN: Yes Procedures Procedure Narrative After the risks and benefits were discussed the following procedure was performed: INCISION AND DRAINAGE OF ABSCESS: The area was prepped and was sterilely draped. A subcutaneous wheal of 1 % Xylocaine with a total number 2 mL was used to anesthetize the area. The area was properly anesthetized. A number [id number] was used to make a 2 -cm incision across the area of the abscess. Cultures were obtained. The abscess was drained an irrigated with normal saline. Quarter inch iodoform packing was placed in the wound. Sterile dressing applied. Patient advised to have packing removed in two days. Condition: Stable Jada Mtz Amelie LAL Jun 24, 2017 12:48
[2017-06-24 13:36] LABS: CALCIUM 8.3 MG/DL (8.5-10.1); CREATININE 0.8 MG/DL (0.60-1.30)
[2017-06-24 15:05] VITALS: BP 116/61; PULSE 65; RESP 15; O2SAT 97
[2017-06-24 15:20] LABS: AUTOMATED NEUTROPHIL # 9.8 TH/MM3 (1.8-7.7); BASOPHIL % 0.3 % (0.0-2.0); EOSINOPHIL # 0.1 TH/MM3 (0-0.4); EOSINOPHIL % 1.1 % (0.0-4.0); HEMATOCRIT 32.2 % (39.0-51.0); HEMOGLOBIN 11.3 GM/DL (13.0-17.0); LYMPH % 13.2 % (9.0-44.0); LYMPHOCYTE # 1.7 TH/MM3 (1.0-4.8); MEAN CELL VOLUME 87.5 FL (80.0-100.0); MEAN CORPUSCULAR HEMOGLOBIN 30.6 PG (27.0-34.0); MEAN PLATELET VOLUME 8.7 FL (7.0-11.0); MONO % 9.2 % (0.0-8.0); MONOCYTE # 1.2 TH/MM3 (0-0.9); NEUT % 76.2 % (16.0-70.0); PLATELET COUNT 177 TH/MM3 (150-450); RED BLOOD COUNT 3.68 MIL/MM3 (4.50-5.90); RED CELL DISTRIBUTION WIDTH 12.3 % (11.6-17.2); WHITE BLOOD COUNT 12.9 TH/MM3 (4.0-11.0)
[2017-06-24] MEDS ORDERED: CLIN150 PO (15:23)
[2017-06-24 16:32] VITALS: BP 110/60
== END 2017-06-24 16:38 | disposition home or self-care (01) ==
LOC: NEPC 11:02
DX: L02.413 Cutaneous abscess of right upper limb (principal); F19.10 Other psychoactive substance abuse, uncomplicated; F31.9 Bipolar disorder, unspecified; F41.9 Anxiety disorder, unspecified; F17.200 Nicotine dependence, unspecified, uncomplicated; F12.90 Cannabis use, unspecified, uncomplicated; F11.90 Opioid use, unspecified, uncomplicated
CPT/HCPCS: 10060; 80048; 85025; 87070; 96374; 96375; 99284; J1885; J7030